=== PATIENT | male | born 1960 | race African-American/Black ===

== ENCOUNTER 2016-06-22 21:30 | Emergency (ER) | payer SELFPAY ==
--- NOTE | ~2016-06-22 | CR58 ---
[facility] A Service of [facility] RADIOLOGY TEXT RESULTS PATIENT: MARTHA KIDD LOCATION: [facility] : 64 UNIT #: [id number] AGE: [address]: Daniel Robledo MD SEX: M ORDER DR: [id number] [place], [place] [address] [id number] E MR#: [id number] Acc #: [id number] NAME: MARTHA KIDD : 1960 SEX: M STUDY DATE/TIME: 06/22/2016 23:39 UNIT: [facility] ROOM: STUDY DESCRIPTION: CR Cervical Spine 2 or 3 Views Attending Physician: Cali Robledo M.D. Ordering Physician: Ed Doc Patrick Lopez Primary Care Physician: No Primary Care Physician MEDICAL IMAGING REPORT This report is preliminary unless electronic signature is present EXAM 3 view cervical spine DATE 06/22/2016 HISTORY 55-year-old male with neck pain tonight after fall, found down. COMPARISON None. FINDINGS Craniocervical junction appears intact. Cervical vertebral bodies demonstrate normal height and alignment. No cervical spine fracture or subluxation is seen. Disc space height appears well maintained. No abnormal prevertebral soft tissue swelling is seen. IMPRESSION Normal 3 views of the cervical spine. Dictated by... Cheyanne Dove M.D. THIS IS AN ELECTRONICALLY VERIFIED REPORT Cheyanne Dove M.D. at 06/23/2016 6:02 AM JB/raciel TD: 06/23/2016 02:33 JOB #: [id number] [facility] A Service of [facility] RADIOLOGY TEXT RESULTS PATIENT: MARTHA KIDD LOCATION: [facility] : 64 UNIT #: [id number] AGE: [address]: Daniel Robledo MD SEX: M ORDER DR: MEDICAL IMAGING REPORT Page 1 of 1 COPY
--- NOTE | ~2016-06-22 | CT71 ---
[facility] A Service [facility] RADIOLOGY TEXT RESULTS PATIENT: MARTHA KIDD LOCATION: [facility] : 64 UNIT #: [id number] AGE: [address]: Daniel Robledo MD SEX: M ORDER DR: [id number] [facility]. [place], [place] [address] [id number] E MR#: [id number] Acc #: [id number] NAME: MARTHA KIDD : 1960 SEX: M STUDY DATE/TIME: 06/22/2016 23:34 UNIT: [facility] ROOM: STUDY DESCRIPTION: CT Head Wo Contrast Attending Physician: Cali Robledo M.D. Ordering Physician: Ed Shane Lopez M.D. Primary Care Physician: No Primary Care Physician MEDICAL IMAGING REPORT This report is preliminary unless electronic signature is present EXAM Noncontrast CT head DATE 06/22/2016 at 23:34 HISTORY 55-year-old male found in street today with confusion and abrasion to the nose. Patient's previous history is unknown. COMPARISON None. TECHNIQUE This CT exam was performed with one or more of the following radiation dose reduction techniques: automatic control, adjustment of mA and/or kV according to patient size, and iterative reconstruction. FINDINGS Study is degraded by motion, and assessing repeated attempts at imaging. Allowing for this limitation, no gross acute intracranial hemorrhage, mass lesion, mass effect or midline shift is seen. There is no convincing CT evidence of acute or evolving infarct. Major paranasal sinuses and mastoid air cells appear clear. No displaced calvarial fractures identified. IMPRESSION 1. No acute intracranial findings. Dictated by... Cheyanne Dove M.D. THIS IS AN ELECTRONICALLY VERIFIED REPORT [facility] A Service [facility] RADIOLOGY TEXT RESULTS PATIENT: MARTHA KIDD LOCATION: [facility] : 64 UNIT #: [id number] AGE: [address]: Daniel Robledo MD SEX: M ORDER DR: Cheyanne Dove M.D. at 06/23/2016 6:02 AM JB/[email or web address] TD: 06/23/2016 02:29 JOB #: [id number] MEDICAL IMAGING REPORT Page 1 of 1 COPY
[2016-06-22 21:15] LABS: BASOPHIL% 0.3 % (0-2.5); EOSINOPHIL% 0.5 % (0.0-7.0); HEMATOCRIT 42.7 % (38.0-50.0); LYMPHOCYTE# 1.5 X10e3 (1.0-3.5); LYMPHOCYTE% 30.9 % (17.0-45.0); MEAN CELL VOLUME 88.9 FL (83-96); MEAN CORPUSCULAR HEMOGLOBIN 29.1 PG (28-34); MEAN CORPUSCULAR HGB CONC 32.8 g/dL (30-36); MEAN PLATELET VOLUME 8.8 FL (6.5-11.5); MONOCYTE# 0.7 X10e3 (0-1.0); MONOCYTE% 13.4 % (3.0-12.0); NEUTROPHIL# 2.7 X10e3 (1.5-7.1); NEUTROPHIL% 54.9 % (40-75); PLATELET COUNT 174 X10e3 (140-420); RED BLOOD COUNT 4.81 X10e (3.90-5.60); RED CELL DISTRIBUTION WIDTH 14.7 % (11.0-15.5); WHITE BLOOD COUNT 4.9 X10e3 (4.0-10.5)
[2016-06-22 21:19] LABS: DIFF IND NO
[2016-06-22 21:40] LABS: ALBUMIN SERUM 4.2 g/dL (3.5-5.0); BILIRUBIN, DIRECT 0.1 mg/dL (0.0-0.2); BILIRUBIN,INDIRECT 0.5 mg/dL (0.0-0.9); BILIRUBIN,TOTAL 0.6 mg/dL (0.2-2.0); BUN/CREATININE RATIO 9.16; CALCIUM SERUM 8.4 mg/dL (8.4-10.2); CREATININE SERUM 1.2 mg/dL (0.6-1.4); GLOM FILT RATE Estimated 79.6 mL/min (>60); POTASSIUM 3.6 mmol/L (3.5-5.1); PROTEIN TOTAL SERUM 7.5 g/dL (6.0-8.3)
== END 2016-06-23 06:13 | disposition home or self-care (01) ==
LOC: CED 21:30
PROVIDERS: Emergency Medicine
DX: F10.129 Alcohol abuse with intoxication, unspecified (principal); F17.210 Nicotine dependence, cigarettes, uncomplicated
CPT/HCPCS: 36415; 70450; 72040; 80048; 80076; 82140; 85025; 99284; G0480